=== PATIENT | female | born 1980 | race Two or more races ===

== ENCOUNTER 2018-11-30 10:59 | Emergency (ER) | payer MEDICAID ==
[~2018-11-30] VITALS: Ht 152.4 cm; Wt 70.0 kg
[2018-11-30] MEDS ORDERED: ONDANSETRON HCL 4MG/2ML INJ IV STA (11:19)
[2018-11-30] MEDS ORDERED: SODIUM CHLORIDE 0.9% 1,000 ML IV ONE (11:19)
[2018-11-30] MEDS ORDERED: MECLIZINE 25MG TABLET PO ONE (11:30)
[2018-11-30] MEDS ORDERED: KETOROLAC 15MG/ML VIAL IV ONE (11:30)
[2018-11-30 11:31] LABS: CLARITY URINE CLOUDY (CLEAR); COLOR URINE YELLOW (YELLOW); KETONES URINE NEGATIVE (NEGATIVE); LEUKOCYTE ESTERASE URINE NEGATIVE (NEGATIVE); NITRITE URINE NEGATIVE (NEGATIVE); OCCULT BLOOD URINE NEGATIVE (NEGATIVE); PROTEIN URINE 1+ (NEGATIVE); SPECIFIC GRAVITY URINE 1.018 (1.005-1.030); UROBILINOGEN URINE 0.2 E.U./dL (0.2-1.0)
[2018-11-30 11:36] LABS: BASOPHILS % 0.8 % (0.0-2.0); EOSINOPHILS % 1.9 % (0.0-5.0); HEMATOCRIT. 38.6 % (36.0-48.0); HEMOGLOBIN. 12.9 g/dL (12.0-16.0); LYMPHOCYTES % 36.3 % (20.0-50.0); MEAN CORPUSCULAR HEMOGLOBIN 26.7 pg (28.0-32.0); MEAN CORPUSCULAR VOLUME 80.2 fL (81.0-99.0); MEAN PLATELET VOLUME 10.4 fl (7.4-10.4); MONOCYTES % 6.1 % (2.0-8.0); NEUTROPHILS % 54.9 % (40.0-76.0); PLATELET 199 x1000/uL (130-400); RED BLOOD CELL COUNT 4.81 mill/uL (4.2-5.4); RED CELL DISTRIBUTION WIDTH 14.8 % (11.6-14.6)
[2018-11-30 11:43] LABS: CHLORIDE 104 mEq/L (98-107)
[2018-11-30 13:10] VITALS: BP 124/69
== END 2018-11-30 13:10 | disposition home or self-care (01) ==
LOC: ER 10:59
DX: H81.399 Other peripheral vertigo, unspecified ear (principal); R51 Headache
CPT/HCPCS: 36415; 80053; 81003; 81025; 85025; 96361; 96374; 96375; 99283; J1885; J2405; J7030; J8597